=== PATIENT | male | born 1970 | race Caucasian/White ===

== ENCOUNTER 2017-07-07 09:07 | Emergency (ER) | payer OTHER ==
[2017-07-07 09:30] VITALS: BP 145/91
[2017-07-07] MEDS ORDERED: Ketorolac 60 MG/2 ML SDV IM ONE (09:49)
[2017-07-07] MEDS ORDERED: Cyclobenzaprine 10 MG Tab PO ONE (09:49)
--- NOTE | 2017-07-07 09:52 | EDM.PDOC ---
ED HPI GENERAL MEDICAL PROBLEM - General Chief Complaint: Back Pain or Injury Stated Complaint: BACK PAIN Time Seen by Provider: 07/07/17 09:47 Source of Information: Reports: Patient, Family, RN Notes Reviewed History Limitations: Reports: No Limitations - History of Present Illness INITIAL COMMENTS - FREE TEXT/NARRATIVE: 46-year-old gentleman presents emergency department day complaint of low back pain primarily on the right side he does admit to lifting injury. He has not tried anything for the pain yet he describes the pain is quite debilitating no loss of bowel or bladder no numbness and tingling in the feet Lower Back Pain Score (Numeric/FACES): 3 - Related Data Allergies Allergy/AdvReac Type Severity Reaction Status Date / Time No Known Allergies Allergy Verified 07/07/17 09:41 Home Meds: Home Meds Losartan/Hydrochlorothiazide [Losartan-HCTZ 50-12.5 MG] 1 tab PO DAILY 07/07/17 [History] Past Medical History Cardiovascular History: Reports: Hypertension Genitourinary History: Reports: Renal Calculus - Past Surgical History HEENT Surgical History: Reports: Myringotomy w Tube(s), Other (See Below) Other HEENT Surgeries/Procedures: reconstructive eardrum surgery Social & Family History - Tobacco Use Smoking Status *Q: Never Smoker - Recreational Drug Use Recreational Drug Use: No ED ROS GENERAL - Review of Systems Review Of Systems: See Below Constitutional: Reports: No Symptoms : Reports: No Symptoms Musculoskeletal: Reports: Back Pain ED EXAM,LOWER BACK PAIN/INJURY - Physical Exam Exam: See Below Text/Narrative:: Examination of the back he has paraspinal tenderness on the right side no spinal tenderness crosslegged test and straight leg test are both negative patellar reflex is +2 bilaterally Exam Limited By: No Limitations General Appearance: Alert, WD/WN, No Apparent Distress Course - Vital Signs Last Recorded V/S: Last Vital Signs Temp 94.6 F L 07/07/17 09:41 Pulse 67 07/07/17 09:41 Resp 16 07/07/17 09:41 BP 145/91 H 07/07/17 09:41 Pulse Ox 99 07/07/17 09:41 - Orders/Labs/Meds Meds: Medications Discontinued Medications Generic Name Dose Route Start Last Admin Trade Name Freq PRN Reason Stop Dose Admin Cyclobenzaprine HCl 10 mg 07/07/17 09:49 07/07/17 09:56 Flexeril PO 07/07/17 09:50 10 mg ONETIME ONE Administration Ketorolac Tromethamine 60 mg 07/07/17 09:49 07/07/17 09:56 Toradol IM 07/07/17 09:50 60 mg ONETIME ONE Administration Departure - Departure Time of Disposition: 10:56 Disposition: Home, Self-Care 01 Condition: Good Clinical Impression: Back pain Qualifiers: Back pain location: low back pain Chronicity: acute Back pain laterality: right Sciatica presence: without sciatica Qualified Code(s): M54.5 - Low back pain - Discharge Information Forms: ED Department Discharge Additional Instructions: Use ibuprofen for baseline pain control, use Flexeril as needed for muscle relaxant, Please followup with your primary care provider in 5-7 days if not better, please call return to the emergency department with worsening of symptoms. - Assessment/Plan Plan: Assessment Acuity = acute Site and laterality = low back pain Etiology = secondary lifting injury Manifestations = none Location of injury = Home Lab values = none Plan He had good improvement with the Toradol injection combination of Flexeril he be discharged home with Flexeril and ibuprofen as needed follow-up primary care 5-7 days if no improvement Patient was in agreement with the plan all questions were answered, they were instructed to return to the emergency department or call for worsening symptoms. This note was dictated using [employer] voice recognition software please call with any questions.
== END 2017-07-07 11:14 | disposition home or self-care (01) ==
LOC: JP.ED 09:07
DX: M54.5 Low back pain (principal); I10 Essential (primary) hypertension; Z96.22 Myringotomy tube(s) status; Z98.890 Other specified postprocedural states; Z79.899 Other long term (current) drug therapy
CPT/HCPCS: 96372; 99283; A9270; J1885